=== PATIENT | male | born 1970 | race Two or more races ===

== ENCOUNTER 2020-09-23 12:38 | Emergency (ER) | payer OTHER ==
[~2020-09-23] VITALS: Ht 177.8 cm; Wt 77.1 kg
[2020-09-23] MEDS ORDERED: LORazepam 2MG/ML-1ML VIAL ONE (12:46)
[2020-09-23] MEDS ORDERED: SODIUM CHLORIDE 0.9% 1,000 ML IV ONE (13:00)
[2020-09-23] MEDS ORDERED: LORazepam 2MG/ML-1ML VIAL IV ONE (13:00)
[2020-09-23 13:40] LABS: Basophils # (auto) 0 10 ^3/uL (0-0.2); Basophils % (auto) 0.8 % (0.0-2.0); Eosinophils # (auto) 0.2 10 ^3/uL (0-0.8); Eosinophils % (auto) 3.4 % (0.0-7.0); Hematocrit 42.6 % (41.0-53.0); Hemoglobin 14.3 g/dL (13.5-17.5); Lymphocytes # (auto) 1.3 10 ^3/uL (0.4-5.4); Lymphocytes % (auto) 27.5 % (10.0-50.0); Mean Corpuscular Hemoglobin 27.8 pg (28.0-32.0); Mean Corpuscular Hgb Conc. 33.6 g/dL (32.0-36.0); Mean Corpuscular Volume 82.8 fL (80.0-100.0); Monocytes # (auto) 0.3 10 ^3/uL (0-1.3); Monocytes % (auto) 5.9 % (0.0-12.0); Neutrophils % (auto) 62.4 % (37.0-80.0); Nucleated Red Blood Cells % 0.1 %; Platelet Count (auto) 193 10^3/uL (140-450); Red Blood Cells 5.15 10^6/uL (4.5-5.90); Red Cell Distribution Width 13.6 % (11.8-14.3); White Blood Cell 4.8 10^3/uL (4.4-10.8)
[2020-09-23] MEDS ORDERED: MIDAZOLAM DRIP 50 mg/50mL 50 ML IV ONE (13:41)
[2020-09-23] MEDS ORDERED: PROPOFOL 100 ML IV SCH (13:45)
[2020-09-23] MEDS ORDERED: ETOMIDATE (2MG/ML) 20ML VIAL IV ONE (13:45)
[2020-09-23] MEDS ORDERED: SUCCINYLCHOLINE CHLORIDE 20 MG/ML 10ML VIAL IV ONE (13:45)
[2020-09-23 13:51] VITALS: BP 181/131
[2020-09-23] MEDS: MIDAZOLAM DRIP 50 mg/50mL 50 ML IV SCH ×2 (13:51→14:51)
[2020-09-23 13:53] LABS: Calcium 8.2 mg/dL (8.5-10.1); Potassium 4.1 mmol/L (3.5-5.1)
[2020-09-23] MEDS ORDERED: PROPOFOL 100 ML IV ONE (13:56)
[2020-09-23 13:58] LABS: Albumin 3.5 g/dL (3.4-5.0); BUN/Creatinine Ratio 13.6; Bilirubin, Total 0.5 mg/dL (0.2-1.0); Total Protein 7.3 g/dL (6.4-8.2)
[2020-09-23] MEDS ORDERED: fentaNYL Drip 2500mCg/250mlNS 250 ML IV ONE (14:04)
[2020-09-23 14:05] VITALS: BP 116/83
[2020-09-23] MEDS ORDERED: fentaNYL Drip 2500mCg/250mlNS 250 ML IV SCH (14:05)
[2020-09-23 14:10] LABS: Urine Bacteria NONE SEEN /hpf (None Seen); Urine Blood Negative /uL (Negative); Urine Specific Gravity 1.036 (1.001-1.035); Urine WBC 1 /hpf (0 - 3)
[2020-09-23] MEDS ORDERED: MIDAZOLAM DRIP 50 mg/50mL 50 ML IV SCH (15:00)
== END 2020-09-23 15:22 | disposition designated cancer center or children's hospital (05) ==
LOC: EDBD 12:38 → ER 12:38
DX: S06.5X0A Traumatic subdural hemorrhage without loss of consciousness, initial encounter (principal); R56.9 Unspecified convulsions; R41.82 Altered mental status, unspecified; R29.6 Repeated falls; Z86.73 Personal history of transient ischemic attack (TIA), and cerebral infarction without residual deficits; W18.39XA Other fall on same level, initial encounter; Y93.89 Activity, other specified; Y92.89 Other specified places as the place of occurrence of the external cause; Y99.8 Other external cause status
CPT/HCPCS: 31500; 36415; 70450; 71045; 74176; 80053; 80320; 81001; 82010; 83690; 85025; 87070; 87205; 93005; 96361; 96365; 96367; 99291; J0330; J1953; J2060; J2250; J2704; J7060; 94002

== ENCOUNTER 2020-10-09 14:31 | Inpatient (IN) | payer MEDICAID, OTHER ==
[~2020-10-09] VITALS: Ht 177.8 cm; Wt 75.1 kg
[2020-10-09] MEDS ORDERED: SODIUM CHLORIDE 0.9% 1,000 ML IV ONE (15:15)
[2020-10-09] MEDS ORDERED: InsuLIN REG 1unit/0.01ml Soln (100units/ml) IV ONE (15:15)
[2020-10-09 15:45] LABS: Basophils # (auto) 0.1 10 ^3/uL (0-0.2); Basophils % (auto) 1.3 % (0.0-2.0); Eosinophils # (auto) 0.4 10 ^3/uL (0-0.8); Eosinophils % (auto) 7.1 % (0.0-7.0); Hemoglobin 12.2 g/dL (13.5-17.5); Lymphocytes # (auto) 1.8 10 ^3/uL (0.4-5.4); Lymphocytes % (auto) 31.6 % (10.0-50.0); Mean Corpuscular Hemoglobin 27.7 pg (28.0-32.0); Mean Corpuscular Volume 83.9 fL (80.0-100.0); Monocytes # (auto) 0.4 10 ^3/uL (0-1.3); Neutrophils # (auto) 3.1 10 ^3/uL (1.6-8.6); Platelet Count (auto) 359 10^3/uL (140-450); Red Blood Cells 4.41 10^6/uL (4.5-5.90); Red Cell Distribution Width 13.5 % (11.8-14.3); White Blood Cell 5.8 10^3/uL (4.4-10.8)
[2020-10-09 15:46] LABS: Urine Bacteria NONE SEEN /hpf (None Seen); Urine Blood Negative /uL (Negative); Urine Specific Gravity 1.033 (1.001-1.035); Urine WBC <1 /hpf (0 - 3)
[2020-10-09 16:08] LABS: Alcohol, Urine < 3.0 mg/dL (0-10); Amphetamine Screen, Urine NEGATIVE (NEGATIVE); Barbiturate Scree,Urine NEGATIVE (NEGATIVE); Benzodiazephine Screen, Urine NEGATIVE (NEGATIVE); Cannabinoid Screen, Urine POSITIVE (NEGATIVE); Cocaine Screen, Urine NEGATIVE (NEGATIVE); Opiate Scree,Urine NEGATIVE (NEGATIVE); Phencyclidine Screen, Urine NEGATIVE (NEGATIVE)
[2020-10-09 16:10] LABS: Albumin 3.1 g/dL (3.4-5.0); Anion Gap 6 (5-15); Calcium 8.2 mg/dL (8.5-10.1); Carbon Dioxide 27 mmol/L (21-32); Chloride 99 mmol/L (98-107); Sodium 132 mmol/L (136-145)
[2020-10-09 16:18] LABS: Alanine Aminotransferase 31 U/L (16-61); Alkaline Phosphatase 107 U/L (45-117); Aspartate Aminotransferase 15 U/L (15-37); BUN/Creatinine Ratio 21.9; Bilirubin, Total 0.1 mg/dL (0.2-1.0); Blood Urea Nitrogen 16 mg/dL (7-18); GFR African American 146 mL/min; GFR Non-African American 121 mL/min; Glucose 393 mg/dL (74-106); Total Protein 6.9 g/dL (6.4-8.2)
[2020-10-09] MEDS ORDERED: HYDROcodone-ACET 5/325MG TAB PO PRN (18:45)
[2020-10-09] MEDS ORDERED: ONDANSETRON HCL 4 MG/2 ML VIAL IV PRN (18:45)
[2020-10-09] MEDS ORDERED: ACETAMINOPHEN 500 MG TAB PO PRN (18:45)
[2020-10-09] MEDS ORDERED: NITROGLYCERIN 0.4 MG SL TAB SL PRN (18:45)
[2020-10-09] MEDS ORDERED: MORPHINE SULF INJ 2 MG/ML SYRINGE 1ML IV PRN (18:45)
[2020-10-10] MEDS ORDERED: TEMAZEPAM 15 MG CAP PO ONE (03:00)
[2020-10-10] MEDS: AZITHROMYCIN 500MG/ 250ML 250 ML IV SCH ×2 (04:00→10:55)
[2020-10-10] MEDS: LORazepam 2MG/ML-1ML VIAL IV PRN ×3 (07:34→15:32)
[2020-10-10] MEDS: ZINC SULFATE 220mg CAP or TAB PO SCH (10:54)
[2020-10-10] MEDS: ASCORBIC ACID 500 MG TAB PO SCH (10:55)
[2020-10-10] MEDS: FAMOTIDINE 20 MG TAB PO SCH (10:55)
[2020-10-10] MEDS ORDERED: PHE100C PO (12:57)
[2020-10-10] MEDS ORDERED: LEVE100012 PO (12:57)
[2020-10-10 13:00] VITALS: BP 127/92
[2020-10-10 17:00] VITALS: BP 111/67
[2020-10-11] MEDS: MORPHINE SULF INJ 2 MG/ML SYRINGE 1ML IV PRN (01:19)
[2020-10-11 09:00] VITALS: BP 131/85
[2020-10-11] MEDS: ZINC SULFATE 220mg CAP or TAB PO SCH (10:06)
[2020-10-11] MEDS: CHOLECALCIFEROL (VITD3) 2,000 UNIT CAP/TAB PO SCH (10:07)
[2020-10-11] MEDS: AZITHROMYCIN 500MG/ 250ML 250 ML IV SCH (10:07)
[2020-10-11] MEDS: ASCORBIC ACID 500 MG TAB PO SCH (10:07)
[2020-10-11] MEDS: FAMOTIDINE 20 MG TAB PO SCH (10:07)
[2020-10-11] MEDS: LORazepam 2MG/ML-1ML VIAL IV PRN ×4 (12:17→17:22)
[2020-10-11] MEDS ORDERED: LABETALOL HCL 5 MG/ML 4ML SYRINGE IV PRN (14:30)
[2020-10-11 17:30] VITALS: BP 128/87
[2020-10-11] MEDS ORDERED: DEXTROSE (50%) 50ML SYRG IV PRN (19:15)
[2020-10-11] MEDS: INSULIN LANTUS (GLARGINE) 1 /0.01ml (100units/ml) SC SCH (21:26)
[2020-10-11] MEDS: ACCU-CHEK COMFORT CURVE STRIP VI SCH (21:26)
[2020-10-11] MEDS: InsuLIN REG 1unit/0.01ml Soln (100units/ml) SC SCH (21:29)
[2020-10-12] VITALS: BP 125/75
[2020-10-12 04:54] VITALS: BP 128/74
[2020-10-12] MEDS: InsuLIN REG 1unit/0.01ml Soln (100units/ml) SC SCH ×4 (06:47→21:06)
[2020-10-12] MEDS: ACCU-CHEK COMFORT CURVE STRIP VI SCH ×4 (06:47→21:02)
[2020-10-12 09:00] VITALS: BP 107/68
[2020-10-12] MEDS: ZINC SULFATE 220mg CAP or TAB PO SCH (09:42)
[2020-10-12] MEDS: ASCORBIC ACID 500 MG TAB PO SCH (09:43)
[2020-10-12] MEDS: FAMOTIDINE 20 MG TAB PO SCH (09:43)
[2020-10-12] MEDS: CHOLECALCIFEROL (VITD3) 2,000 UNIT CAP/TAB PO SCH (09:43)
[2020-10-12] MEDS ORDERED: PHENYTOIN IV DILANTIN 300 MG in SODIUM CHL 0.9% 50 ML IV ONE (10:30)
[2020-10-12 17:00] VITALS: BP 105/74
[2020-10-12] MEDS: INSULIN LANTUS (GLARGINE) 1 /0.01ml (100units/ml) SC SCH (21:06)
[2020-10-12] MEDS: PHENYTOIN IV DILANTIN 300 MG in SODIUM CHL 0.9% 50 ML IV SCH (21:43)
[2020-10-12 22:00] VITALS: BP 113/74
[2020-10-12] MEDS: MORPHINE SULF INJ 2 MG/ML SYRINGE 1ML IV PRN (22:42)
[2020-10-13 05:00] VITALS: BP 102/61
[2020-10-13 05:52] LABS: Potassium 3.8 mmol/L (3.5-5.1)
[2020-10-13 05:56] LABS: BUN/Creatinine Ratio 29.7; Calcium 8.3 mg/dL (8.5-10.1)
[2020-10-13] MEDS: InsuLIN REG 1unit/0.01ml Soln (100units/ml) SC SCH ×3 (06:12→17:00)
[2020-10-13] MEDS: ACCU-CHEK COMFORT CURVE STRIP VI SCH ×3 (06:13→17:15)
[2020-10-13 09:00] VITALS: BP 131/60
[2020-10-13] MEDS: FAMOTIDINE 20 MG TAB PO SCH (09:17)
[2020-10-13] MEDS: AZITHROMYCIN 500MG/ 250ML 250 ML IV SCH (09:17)
[2020-10-13] MEDS: ASCORBIC ACID 500 MG TAB PO SCH (09:17)
[2020-10-13] MEDS: CHOLECALCIFEROL (VITD3) 2,000 UNIT CAP/TAB PO SCH (09:17)
[2020-10-13] MEDS: ZINC SULFATE 220mg CAP or TAB PO SCH (09:17)
[2020-10-13] MEDS ORDERED: PHE100C PO (10:52)
[2020-10-13] MEDS ORDERED: ASCO500T11 PO (10:52)
[2020-10-13] MEDS ORDERED: CHOL1CAP47 PO (10:52)
[2020-10-13] MEDS ORDERED: LEVE100012 PO (10:52)
[2020-10-13] MEDS ORDERED: METF-370 PO (11:08)
[2020-10-13 13:00] VITALS: BP 111/75
[2020-10-13] MEDS: PHENYTOIN IV DILANTIN 300 MG in SODIUM CHL 0.9% 50 ML IV SCH (13:02)
[2020-10-13] MEDS ORDERED: PHENYTOIN SODIUM 100 MG CAP PO ONE (13:15)
[2020-10-13] MEDS ORDERED: levETIRAcetam 500 MG TAB PO ONE (13:15)
[2020-10-13 14:21] VITALS: BP 111/75
== END 2020-10-13 17:45 | disposition home or self-care (01) | DRG 53 ==
LOC: EDBD 14:31 → ER 14:31 → TELE 18:48 → TELE-WESTW 10-10 10:24
PROVIDERS: ADMIT Nurse Practitioner Acute Care; ATTEND Internal Medicine
DX: G40.401 Other generalized epilepsy and epileptic syndromes, not intractable, with status epilepticus (principal); U07.1 COVID-19; E11.65 Type 2 diabetes mellitus with hyperglycemia; D64.9 Anemia, unspecified; F12.10 Cannabis abuse, uncomplicated; F09 Unspecified mental disorder due to known physiological condition; I10 Essential (primary) hypertension; F17.200 Nicotine dependence, unspecified, uncomplicated; Z79.899 Other long term (current) drug therapy; Z83.3 Family history of diabetes mellitus; Z86.73 Personal history of transient ischemic attack (TIA), and cerebral infarction without residual deficits
CPT/HCPCS: 36415; 70450; 71045; 80048; 80053; 80185; 80307; 81001; 82040; 82962; 83036; 84484; 85025; 87081; 87426; 93005; 95819; 96361; 96374; 97116; 97163; 97530; G0378; J1815; J7060

== ENCOUNTER 2021-03-27 11:27 | Inpatient (IN) | payer MEDICAID ==
[~2021-03-27] VITALS: Ht 172.7 cm; Wt 91.3 kg
[~2021-03-27 11:27] MED LIST: ASCO500T11 PO; CHOL1CAP47 PO; LEVE100012 PO; METF-370 PO; PHE100C PO
[2021-03-27] MEDS ORDERED: SODIUM CHLORIDE 0.9% 1,000 ML IV ONE ×2 (11:45→14:00)
[2021-03-27 12:15] LABS: Basophils # (auto) 0 10 ^3/uL (0-0.2); Basophils % (auto) 0.7 % (0.0-2.0); Eosinophils # (auto) 0.1 10 ^3/uL (0-0.8); Eosinophils % (auto) 1.4 % (0.0-7.0); Hematocrit 39.5 % (41.0-53.0); Hemoglobin 13.9 g/dL (13.5-17.5); Lymphocytes # (auto) 1.1 10 ^3/uL (0.4-5.4); Lymphocytes % (auto) 14.7 % (10.0-50.0); Mean Corpuscular Hemoglobin 29.3 pg (28.0-32.0); Mean Corpuscular Hgb Conc. 35.2 g/dL (32.0-36.0); Mean Corpuscular Volume 83.2 fL (80.0-100.0); Monocytes # (auto) 0.3 10 ^3/uL (0-1.3); Monocytes % (auto) 4.5 % (0.0-12.0); Neutrophils # (auto) 5.8 10 ^3/uL (1.6-8.6); Neutrophils % (auto) 78.7 % (37.0-80.0); Nucleated Red Blood Cells % 0.1 %; Red Blood Cells 4.74 10^6/uL (4.5-5.90); Red Cell Distribution Width 13.5 % (11.8-14.3); White Blood Cell 7.4 10^3/uL (4.4-10.8)
[2021-03-27] MEDS ORDERED: InsuLIN REG 1unit/0.01ml Soln (100units/ml) IV ONE (12:30)
[2021-03-27 12:35] LABS: Albumin 3.4 g/dL (3.4-5.0); Anion Gap 7 (5-15); Blood Urea Nitrogen 17 mg/dL (7-18); Calcium 7.6 mg/dL (8.5-10.1); Carbon Dioxide 23 mmol/L (21-32); Chloride 105 mmol/L (98-107); Glucose 359 mg/dL (74-106); Potassium 4.4 mmol/L (3.5-5.1); Sodium 135 mmol/L (136-145)
[2021-03-27 12:44] LABS: Alanine Aminotransferase 51 U/L (16-61); Alkaline Phosphatase 98 U/L (45-117); Aspartate Aminotransferase 35 U/L (15-37); BUN/Creatinine Ratio 21.5; Bilirubin, Total 0.4 mg/dL (0.2-1.0); GFR African American 134 mL/min; GFR Non-African American 110 mL/min; Total Protein 7.1 g/dL (6.4-8.2)
[2021-03-27] MEDS ORDERED: InsuLIN REG 1unit/0.01ml Soln (100units/ml) SC ONE (12:45)
[2021-03-27] MEDS ORDERED: InsuLIN REG 1unit/0.01ml Soln (100units/ml) ONE (12:46)
[2021-03-27] MEDS ORDERED: DEXTROSE (50%) 50ML SYRG IV PRN (14:00)
[2021-03-27] MEDS ORDERED: ONDANSETRON HCL 4 MG/2 ML VIAL IV PRN (14:00)
[2021-03-27] MEDS ORDERED: ACETAMINOPHEN 500 MG TAB PO PRN (14:00)
[2021-03-27] MEDS ORDERED: MORPHINE SULF INJ 2 MG/ML SYRINGE 1ML IV PRN ×2 (14:00)
[2021-03-27] MEDS ORDERED: HYDROcodone-ACET 5/325MG TAB PO PRN (14:00)
[2021-03-27] MEDS ORDERED: NITROGLYCERIN 0.4 MG SL TAB SL PRN (14:00)
[2021-03-27] MEDS ORDERED: LORazepam 2MG/ML-1ML VIAL IV PRN (14:00)
[2021-03-27] MEDS: InsuLIN REG 1unit/0.01ml Soln (100units/ml) SC SCH ×2 (17:10→21:50)
[2021-03-27] MEDS: ACCU-CHEK COMFORT CURVE STRIP VI SCH ×2 (17:12→21:45)
[2021-03-27 17:14] LABS: Urine Bacteria NONE SEEN /hpf (None Seen); Urine Blood Negative /uL (Negative); Urine Hyaline Cast FEW /lpf (0 - 2); Urine Mucus FEW (None Seen); Urine Specific Gravity 1.038 (1.001-1.035); Urine WBC <1 /hpf (0 - 3)
[2021-03-27] MEDS ORDERED: PHENYTOIN IV DILANTIN 1,000 MG in SODIUM CHL 0.9% 250 ML IV ONE (20:00)
[2021-03-27] MEDS: levETIRAcetam 500 MG TAB PO SCH (21:52)
[2021-03-27] MEDS: PHENYTOIN SODIUM 100 MG CAP PO SCH (21:52)
[2021-03-27 22:51] VITALS: BP 131/84
[2021-03-27] MEDS ORDERED: METF-370 PO (23:42)
[2021-03-27] MEDS ORDERED: SITA100T7 PO (23:42)
[2021-03-28 05:00] VITALS: BP 100/65
[2021-03-28] MEDS: ACCU-CHEK COMFORT CURVE STRIP VI SCH ×4 (06:26→22:17)
[2021-03-28] MEDS: InsuLIN REG 1unit/0.01ml Soln (100units/ml) SC SCH ×4 (06:36→22:37)
[2021-03-28] MEDS: levETIRAcetam 500 MG TAB PO SCH ×2 (08:32→22:35)
[2021-03-28 08:51] VITALS: BP 123/80
[2021-03-28 13:00] VITALS: BP 121/79
[2021-03-28 13:23] LABS: Amphetamine Screen, Urine NEGATIVE (NEGATIVE); Barbiturate Scree,Urine NEGATIVE (NEGATIVE); Benzodiazephine Screen, Urine NEGATIVE (NEGATIVE); Cannabinoid Screen, Urine POSITIVE (NEGATIVE); Cocaine Screen, Urine NEGATIVE (NEGATIVE); Opiate Scree,Urine NEGATIVE (NEGATIVE); Phencyclidine Screen, Urine NEGATIVE (NEGATIVE)
[2021-03-28 17:00] VITALS: BP 121/81
[2021-03-28 20:00] VITALS: BP 125/80
[2021-03-28 22:00] VITALS: BP 125/80
[2021-03-28] MEDS ORDERED: INSULIN LANTUS (GLARGINE) 1 /0.01ml (100units/ml) SC SCH (22:00)
[2021-03-28] MEDS: PHENYTOIN SODIUM 100 MG CAP PO SCH (22:34)
[2021-03-29 05:08] VITALS: BP 133/92
[2021-03-29] MEDS: ACCU-CHEK COMFORT CURVE STRIP VI SCH ×2 (06:25→11:08)
[2021-03-29] MEDS: InsuLIN REG 1unit/0.01ml Soln (100units/ml) SC SCH ×2 (06:31→11:08)
[2021-03-29 06:48] LABS: Potassium 3.7 mmol/L (3.5-5.1)
[2021-03-29 06:59] LABS: BUN/Creatinine Ratio 15.4; Calcium 8.4 mg/dL (8.5-10.1)
[2021-03-29 09:00] VITALS: BP 136/65
[2021-03-29] MEDS: levETIRAcetam 500 MG TAB PO SCH (09:06)
[2021-03-29] MEDS ORDERED: CHOL1CAP47 PO (09:21)
[2021-03-29] MEDS ORDERED: ASCO500T11 PO (09:21)
[2021-03-29 12:09] VITALS: BP 103/65
== END 2021-03-29 16:10 | disposition home health service (06) | DRG 53 ==
LOC: EDBD 11:27 → ER 11:27 → TELE 13:59 → TELE-EAST 20:30
PROVIDERS: ADMIT Nurse Practitioner Acute Care; ATTEND Internal Medicine
DX: G40.409 Other generalized epilepsy and epileptic syndromes, not intractable, without status epilepticus (principal); U07.1 COVID-19; G93.41 Metabolic encephalopathy; E11.65 Type 2 diabetes mellitus with hyperglycemia; J98.11 Atelectasis; I10 Essential (primary) hypertension; F12.10 Cannabis abuse, uncomplicated; Z86.73 Personal history of transient ischemic attack (TIA), and cerebral infarction without residual deficits; Z91.14 Patient's other noncompliance with medication regimen; Z79.899 Other long term (current) drug therapy
CPT/HCPCS: 36415; 70450; 71045; 73030; 80048; 80053; 80185; 80307; 81001; 82962; 83036; 83735; 84484; 85025; 87426; 93005; 96360; 96361; 96372; 97110; 97116; 97530; G0378; J1815; J2405